=== PATIENT | female | born 1965 | race Two or more races ===

== ENCOUNTER → 2023-10-02 | Emergency (ER) | payer OTHER ==
[~2023-10-02] VITALS: Ht 160 cm; Wt 72.6 kg
[~2023-10-02] MED LIST: ADDERALL 10 MG10 MG; LEVSIN/SL0.125 MG SL; ONDANSETRON ODT8 MG PO; PEPCID AC20 MG PO; WELLBUTRIN SR100 MG
[2023-10-02 09:06] LABS: HEMATOCRIT 45.9 % (36.0-45.00); HEMOGLOBIN 15.7 g/dL (12.0-15.00); MEAN CELL VOLUME 92.2 fL (80.00-100.00); MEAN CORPUSCULAR HEMOGLOBIN 31.4 pg (27.00-32.0); MEAN CORPUSCULAR HGB CONC 34.1 g/dl (32.0-36.0); PLATELET COUNT 212 K/uL (150-450); RED BLOOD COUNT 4.98 M/uL (4.00-6.00); RED CELL DISTRIBUTION WIDTH 13.3 % (11.5-14.5)
[2023-10-02 09:39] LABS: CREATININE SERUM 0.89 mg/dL (0.55-1.02); GFR 64.92; POTASSIUM 4.22 mEq/L (3.5-5.1)
[2023-10-02 13:57] LABS: PH,URINE 6.5 (5.0-8.0); URINE APPEARANCE Clear; URINE BACTERIA 51.6 uL (0.0-1933); URINE BILIRRUBIN Negative (NEGATIVE); URINE BLOOD Negative; URINE COLOR Yellow; URINE EPITHELIAL CELLS 26.5 uL (0.0-38.8); URINE GLUCOSE Negative (NEGATIVE); URINE LEUKOCYTE Negative; URINE NITRATE Negative; URINE PROTEIN Trace (NEGATIVE); URINE RBC 5.4 uL (0.0-20.8); URINE WBC 7.5 uL (0.0-23.2)
== END | disposition home or self-care (01) ==
LOC: ER 06:06
PROVIDERS: General Practice
DX: K52.89 Other specified noninfective gastroenteritis and colitis (principal); Z88.8 Allergy status to other drugs, medicaments and biological substances